=== PATIENT | male | born 1955 | race Caucasian/White ===

== ENCOUNTER 2018-02-21 19:53 | Emergency (ER) | payer MEDICARE ==
[~2018-02-21] VITALS: Ht 180.3 cm; Wt 85.7 kg
[2018-02-21] MEDS ORDERED: CLEOCIN HCL150 MG PO (20:10)
[2018-02-21] MEDS ORDERED: TRAMADOL 50 MG50 MG PO (20:11)
[2018-02-21] MEDS ORDERED: NABUMETONE 750750 M1 PO (21:06)
[2018-02-21] MEDS ORDERED: ACETAMINOPHEN-1 EAC1 PO (21:06)
[2018-02-21 21:54] VITALS: BP 123/79
== END 2018-02-21 21:55 | disposition home or self-care (01) ==
LOC: M.ERS 19:53
DX: K04.7 Periapical abscess without sinus (principal); L03.211 Cellulitis of face; G20 Parkinson's disease; F17.200 Nicotine dependence, unspecified, uncomplicated; Z90.89 Acquired absence of other organs; Z90.49 Acquired absence of other specified parts of digestive tract; Z88.6 Allergy status to analgesic agent; Z88.0 Allergy status to penicillin

== ENCOUNTER 2018-03-25 17:04 | Inpatient (IN) | payer MEDICARE ==
[~2018-03-25] VITALS: Ht 180.3 cm; Wt 87.0 kg
[~2018-03-25 17:04] MED LIST: ACETAMINOPHEN-1 EAC1 PO; CLEOCIN HCL150 MG PO; NABUMETONE 750750 M1 PO; TRAMADOL 50 MG50 MG PO
[2018-03-25 17:06] VITALS: BP 136/76
[2018-03-25 17:44] LABS: ABSOLUTE EOSINOPHILS 0.1 thou/uL (0.0-0.7); ABSOLUTE LYMPHOCYTES 1.4 thou/uL (0.8-5.3); ABSOLUTE MONOCYTES 0.5 thou/uL (0.0-1.2); ABSOLUTE NEUTROPHILS 4.5 thou/uL (1.6-8.1); BASOPHILS 0.5 %; HEMATOCRIT 50.2 % (42.0-52.0); HEMOGLOBIN 17.6 gm/dL (14.0-18.0); LYMPHOCYTES 21.1 %; MCH 31.9 pg (26.0-34.0); MCV 91.1 fL (80.0-100.0); MPV 7.7 fl. (7.2-11.1); NUCLEATED RBCS 0 /100WBC; PLATELET COUNT* 196 thou/uL (150-400); POLYS 68.4 %; RDW-CV 13.3 % (10.5-14.5); WBC 6.6 thou/uL (4.0-11.0)
[2018-03-25 17:50] LABS: ANION GAP 5 mmol/L (7-16); BUN 10 mg/dL (7-18); CALCIUM 8.6 mg/dL (8.5-10.1); CHLORIDE 104 mmol/L (98-107); CO2 30 mmol/L (21-32); CREATININE 0.8 mg/dL (0.6-1.3); GLUCOSE 87 mg/dL (70-99); POTASSIUM 4.1 mmol/L (3.5-5.1); SODIUM 139 mmol/L (136-145)
[2018-03-25 17:57] LABS: ALBUMIN 3.7 g/dL (3.4-5.0); ALKALINE PHOSPHATASE 129 U/L (46-116); SGOT 14 U/L (15-37); SGPT 16 U/L (30-65); TOTAL BILIRUBIN 0.8 mg/dL (<0.1-1.0); TOTAL PROTEIN 6.9 g/dL (6.4-8.2); TROPONIN-I LEVEL <0.06 ng/mL (<0.06)
[2018-03-25 18:01] LABS: APTT 28.9 Seconds (25.0-31.3); INR 1.2; PROTIME 12.2 Seconds (9.20-11.50)
[2018-03-25 22:26] VITALS: BP 108/66
[2018-03-25 23:51] VITALS: BP 112/67
[2018-03-26 04:42] LABS: HEMATOCRIT 49.8 % (42.0-52.0); MCH 31.5 pg (26.0-34.0); MCHC 34.1 g/dL (28.0-37.0); MCV 92.3 fL (80.0-100.0); MPV 8.1 fl. (7.2-11.1); RBC 5.4 mil/uL (4.50-6.00); RDW-CV 13.1 % (10.5-14.5); WBC 7.2 thou/uL (4.0-11.0)
[2018-03-26 05:25] LABS: ALBUMIN 3.2 g/dL (3.4-5.0); CALCIUM 7.9 mg/dL (8.5-10.1); CREATININE 0.8 mg/dL (0.6-1.3); POTASSIUM 4.1 mmol/L (3.5-5.1); TOTAL BILIRUBIN 0.5 mg/dL (<0.1-1.0); TOTAL PROTEIN 5.6 g/dL (6.4-8.2)
[2018-03-26 07:55] VITALS: BP 96/64
[2018-03-26 16:14] VITALS: BP 99/53
--- NOTE | 2018-03-26 17:02 | EKG ---
[place] [address] ELECTROCARDIOGRAM REPORT Name: KATHI GARCIA Room: [address] ADM IN .R.#: [id number] Admission: 03/25/18 Attend Phys: Thierry Glez Discharge: Date of : 53 Report #: [id number] THIS REPORT FOR: //name// [facility] ED Test Date: 2018-03-25 Test Time: 17:06:01 Pat Name: KATHI GARCIA Department: Room: [facility] Gender: M [employer] Operator: JOCELYN : 1955 Requested By: Guillermo Hicks Order Number: [id number] MD: Checo Monte Measurements Intervals [place] Rate: 62 P: 0 MA: 154 QRS: 3 QRSD: 101 T: 29 QT: 399 QTc: 406 Interpretive Statements Sinus rhythm Abnormal R-wave progression, early transition No previous ECG available for comparison Electronically Signed On 03-26-2018 17:02:33 CDT by Checo Monte [email or web address] <ELECTRONICALLY SIGNED> By: Checo Monte MD, [facility] 03/26/18 1702 05 05 Checo Monte MD, FACC /EPI
[2018-03-26 21:00] VITALS: BP 99/63
[2018-03-27 07:51] VITALS: BP 110/72
[2018-03-27 12:57] LABS: ABSOLUTE EOSINOPHILS 0.1 thou/uL (0.0-0.7); ABSOLUTE LYMPHOCYTES 1.2 thou/uL (0.8-5.3); ABSOLUTE MONOCYTES 0.6 thou/uL (0.0-1.2); ABSOLUTE NEUTROPHILS 7.6 thou/uL (1.6-8.1); BASOPHILS 0.4 %; EOSINOPHILS 1.1 %; HEMATOCRIT 48.3 % (42.0-52.0); HEMOGLOBIN 16.5 gm/dL (14.0-18.0); LYMPHOCYTES 12.5 %; MCH 31.3 pg (26.0-34.0); MCHC 34.1 g/dL (28.0-37.0); MCV 91.8 fL (80.0-100.0); MONOCYTES 6.2 %; MPV 7.6 fl. (7.2-11.1); NUCLEATED RBCS 0 /100WBC; PLATELET COUNT* 207 thou/uL (150-400); POLYS 79.8 %; RBC 5.26 mil/uL (4.50-6.00); RDW-CV 13.1 % (10.5-14.5); WBC 9.5 thou/uL (4.0-11.0)
[2018-03-27 13:15] LABS: INR 1.3; PROTIME 13.2 Seconds (9.20-11.50)
[2018-03-27 13:20] LABS: ALBUMIN 3.3 g/dL (3.4-5.0); CALCIUM 8.5 mg/dL (8.5-10.1); CREATININE 0.8 mg/dL (0.6-1.3); DIRECT BILIRUBIN 0.1 mg/dL (<0.1-0.3); POTASSIUM 3.9 mmol/L (3.5-5.1); TOTAL BILIRUBIN 0.6 mg/dL (<0.1-1.0); TOTAL PROTEIN 6.4 g/dL (6.4-8.2)
[2018-03-27 20:50] VITALS: BP 109/71
[2018-03-28 04:30] LABS: INR 1.3; PROTIME 13.1 Seconds (9.20-11.50)
[2018-03-28 08:04] VITALS: BP 111/72
[2018-03-28 16:09] VITALS: BP 128/76
[2018-03-28 20:00] VITALS: BP 112/71
[2018-03-29 08:20] VITALS: BP 112/76
[2018-03-29 09:35] LABS: APTT 35.9 Seconds (25.0-31.3); INR 1.7; PROTIME 17.7 Seconds (9.20-11.50)
[2018-03-29] MEDS ORDERED: ENOXAPARIN100 MG/1 M SUBQ (10:55)
[2018-03-29] MEDS ORDERED: COUMADIN 5 MG TA5 M1 PO (10:56)
[2018-03-29 10:57] VITALS: BP 112/76
[2018-03-29 12:49] VITALS: BP 112/76
== END 2018-03-29 15:37 | disposition home or self-care (01) | DRG 299 ==
LOC: M.ERS 17:04 → M.ORTHSURG 21:39 → M.TBA-ER 21:39 → M.ORTHSURG 22:30
PROVIDERS: Emergency Medicine; Emergency Medicine Emergency Medical Services; Internal Medicine; ADMIT Internal Medicine
DX: I82.412 Acute embolism and thrombosis of left femoral vein (principal); J96.01 Acute respiratory failure with hypoxia; M79.1 Myalgia; F17.210 Nicotine dependence, cigarettes, uncomplicated; G20 Parkinson's disease; Z90.49 Acquired absence of other specified parts of digestive tract; Z88.0 Allergy status to penicillin; Z88.8 Allergy status to other drugs, medicaments and biological substances; Z88.6 Allergy status to analgesic agent; Z91.040 Latex allergy status; Z79.01 Long term (current) use of anticoagulants; Z79.899 Other long term (current) drug therapy

== ENCOUNTER 2018-05-31 11:47 | Emergency (ER) | payer MEDICARE ==
[~2018-05-31] VITALS: Ht 180.3 cm; Wt 84.8 kg
[~2018-05-31 11:47] MED LIST changes: +COUMADIN 5 MG TA5 M1 PO; +ENOXAPARIN100 MG/1 M SUBQ
[2018-05-31 13:16] LABS: HEMATOCRIT 55.1 % (42.0-52.0); MCH 31.8 pg (26.0-34.0); MCHC 34.6 g/dL (28.0-37.0); MPV 7.7 fl. (7.2-11.1); RBC 5.98 mil/uL (4.50-6.00); WBC 9.8 thou/uL (4.0-11.0)
[2018-05-31 13:25] LABS: INR 1.3; PROTIME 12.9 Seconds (9.20-11.50)
[2018-05-31] MEDS ORDERED: HYDROCODON-ACE1 EAC7 PO (13:48)
[2018-05-31 14:05] VITALS: BP 150/99
== END 2018-05-31 14:06 | disposition home or self-care (01) ==
LOC: M.ERS 11:47
PROVIDERS: Personal Emergency Response Attendant
DX: K06.8 Other specified disorders of gingiva and edentulous alveolar ridge (principal); K13.79 Other lesions of oral mucosa; G20 Parkinson's disease; F17.210 Nicotine dependence, cigarettes, uncomplicated; Z88.6 Allergy status to analgesic agent; Z88.0 Allergy status to penicillin; Z91.040 Latex allergy status; Z88.8 Allergy status to other drugs, medicaments and biological substances; Z90.49 Acquired absence of other specified parts of digestive tract